=== PATIENT | female | born 1995 | race Caucasian/White ===

== ENCOUNTER 2017-02-24 21:17 | Emergency (ER) | payer OTHER ==
[~2017-02-24] VITALS: Ht 167.6 cm; Wt 47.2 kg
[2017-02-24 21:39] VITALS: BP 124/58; PULSE 84; RESP 16; TEMP 97.4; O2SAT 100
[2017-02-24 21:52] VITALS: BP 124/58; PULSE 84; RESP 16; TEMP 97.4; O2SAT 100
[2017-02-24] MEDS ORDERED: ADDE20 PO (22:04)
[2017-02-24] MEDS ORDERED: ROBA750T PO (22:30)
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
== END 2017-02-24 22:48 | disposition home or self-care (01) ==
LOC: PHEFT 21:17
DX: S16.1XXA Strain of muscle, fascia and tendon at neck level, initial encounter (principal); F90.9 Attention-deficit hyperactivity disorder, unspecified type; V49.40XA Driver injured in collision with unspecified motor vehicles in traffic accident, initial encounter; Z79.899 Other long term (current) drug therapy
CPT/HCPCS: 99283

== ENCOUNTER 2017-07-13 15:49 | Emergency (ER) | payer OTHER ==
[~2017-07-13 15:49] MED LIST: ADDE20 PO; ROBA750T PO
[2017-07-13 15:51] VITALS: BP 119/78; PULSE 122; RESP 18; TEMP 96.8; O2SAT 100
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
[2017-07-13] MEDS ORDERED: ADDE10XR PO (17:59)
[2017-07-13] MEDS ORDERED: MIRT1TAB PO (17:59)
[2017-07-13 18:00] VITALS: PULSE 103
[2017-07-13] MEDS ORDERED: SODIUM CHLOR 0.9% 1000 ML INJ 1,000 ML IV ONE (18:45)
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
[2017-07-13 20:00] LABS: AUTOMATED NEUTROPHIL # 10.8 TH/MM3 (1.8-7.7); BASOPHIL # 0.1 TH/MM3 (0-0.2); BASOPHIL % 0.7 % (0.0-2.0); EOSINOPHIL # 0.3 TH/MM3 (0-0.4); HEMATOCRIT 41.1 % (35.0-46.0); HEMO FLAGS DIFF FINAL; LYMPH % 17.2 % (9.0-44.0); LYMPHOCYTE # 2.7 TH/MM3 (1.0-4.8); MEAN CELL VOLUME 90.5 FL (80.0-100.0); MEAN CORPUSCULAR HEMOGLOBIN 29.7 PG (27.0-34.0); MEAN CORPUSCULAR HGB CONC 32.8 % (32.0-36.0); MONO % 11.1 % (0.0-8.0); PLATELET COUNT 221 TH/MM3 (150-450); RED BLOOD COUNT 4.54 MIL/MM3 (4.00-5.30); RED CELL DISTRIBUTION WIDTH 13.5 % (11.6-17.2); WHITE BLOOD COUNT 15.7 TH/MM3 (4.0-11.0)
[2017-07-13 20:04] LABS: BACTERIA, URINE RARE /hpf; BLOOD, URINE NEG (NEG); COMMENT (UR) CULT NOT INDICATED; CULTURE IF INDICATED CULT NOT INDICATED; GLUCOSE,URINE NEG (NEG); KETONE, URINE NEG (NEG); NITRITE,URINE NEG (NEG); SQUAMOUS EPITHELIAL CELL URINE 5 /hpf (0-5); URINE COLOR LIGHT-YELLOW (YELLW/STRAW)
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
[2017-07-13 20:21] LABS: BICARBONATE 27.5 MEQ/L (21.0-32.0); POTASSIUM 3.5 MEQ/L (3.5-5.1)
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
--- NOTE | 2017-07-14 07:39 | EKG ---
Date Performed: 07/13/2017 Time Performed: 20:11:09 PTAGE: 22 years EKG: Sinus rhythm POSSIBLE RIGHT VENTRICULAR CONDUCTION DELAY MODERATE T-WAVE ABNORMALITY, CONSIDER ANTERIOR ISCHEMIA ABNORMAL ECG NO PREVIOUS TRACING DOCTOR: Poonam William Interpretating Date/Time 07/14/2017 07:37:25
== END 2017-07-13 21:05 | disposition home or self-care (01) ==
LOC: NEPD 15:49
DX: M54.2 Cervicalgia (principal); D72.829 Elevated white blood cell count, unspecified; R07.9 Chest pain, unspecified; R06.02 Shortness of breath; R05 Cough; J02.9 Acute pharyngitis, unspecified; R39.15 Urgency of urination; R11.2 Nausea with vomiting, unspecified; R94.31 Abnormal electrocardiogram [ECG] [EKG]
CPT/HCPCS: 72050; 80048; 81001; 85025; 93005; 99285; J7030